=== PATIENT | female | born 1985 | race Caucasian/White ===

== ENCOUNTER 2018-11-23 17:29 | Emergency (ER) | payer OTHER ==
[2018-11-23 18:16] LABS: #Eosinphils 0.1 thou/uL (0.0-0.7); #Monocytes 0.5 thou/uL (0.11-0.59); #Neutrophils 4.7 thou/uL (1.40-6.50); %Basophils 0.4 % (0.0-1.0); %Eosinophils 0.7 % (0.0-10.0); %Lymphocytes 27.3 % (21.0-51.0); %Monocytes 6.4 % (0.0-10.0); %Neutrophils 65.2 % (42.0-75.0); Hemoglobin 14.5 g/dL (12.0-16.0); Mean Corpuscular HGB CONC 33.6 g/dL (32.0-36.0); Mean Corpuscular Hemoglobin 31.5 pg (27.0-31.0); Mean Corpuscular Volume 93.7 fL (78.0-98.0); Mean Platelet Volume 7.6 fL (7.4-10.4); Platelet Count 308 thou/uL (130-400); Red Blood Cell (RBC) Count 4.61 mill/uL (4.20-5.40); White Blood Cell (WBC) Count 7.2 thou/uL (4.8-10.8)
[2018-11-23 18:38] LABS: ALT (SGPT) 19 U/L (8-55); AST (SGOT) 19 U/L (5-34); Albumin 4.2 g/dL (3.5-5.0); Alkaline Phosphatase 49 U/L (40-150); Anion Gap 11 mmol/L (10-20); BUN (Urea Nitrogen) 8 mg/dL (7.0-18.7); Bilirubin, Total 0.5 mg/dL (0.2-1.2); Calc. Creatinine Clearance 0 mL/min (70-130); Calcium 9.4 mg/dL (7.8-10.44); Carbon Dioxide 25 mmol/L (22-29); Chloride 107 mmol/L (98-107); Estimated GFR-MDRD 87; Globulin 2.9 g/dL (2.4-3.5); Glucose 79 mg/dL (70-105); Potassium 3.7 mmol/L (3.5-5.1); Protein, Total 7.1 g/dL (6.0-8.3); Sodium 139 mmol/L (136-145)
[2018-11-23] MEDS ORDERED: Pantoprazole 40 MG VIAL ONE (18:44)
[2018-11-23 19:02] LABS: PTT 28.6 SEC (22.9-36.1); Prothrombin Time 13.6 SEC (12.0-14.7)
[2018-11-23 19:07] LABS: BHCG - Serum Negative (NEGATIVE); Pregs Control Background? CLEAR/WHITE (CLR/WHITE); Pregs Control Bar Appear? YES (CONTROL BAR)
[2018-11-23] MEDS ORDERED: Ondansetron PF 4 MG/2 ML Vial ONE (19:19)
--- NOTE | 2018-11-23 19:20 | RAD ---
XR Chest Pa Lat STANDARD History: Nausea and vomiting Comparison: None. Findings: Lungs are clear. No pneumothorax or effusion. Cardiac silhouette and mediastinal contours a re within normal limits. Impression: No acute intrathoracic abnormality.
== END 2018-11-23 20:00 | disposition home or self-care (01) ==
LOC: ERS 17:29
DX: K22.6 Gastro-esophageal laceration-hemorrhage syndrome (principal); J45.909 Unspecified asthma, uncomplicated; F41.9 Anxiety disorder, unspecified; F32.9 Major depressive disorder, single episode, unspecified; F17.210 Nicotine dependence, cigarettes, uncomplicated
CPT/HCPCS: 36415; 71046; 80053; 82274; 84703; 85025; 85610; 85730; 96374; 96375; C9113; J2405

== ENCOUNTER 2022-05-17 03:35 | Emergency (ER) | payer OTHER, SELFPAY | END 2022-05-17 04:23 | LOC: ERS 03:35 | DX: S02.2XXA Fracture of nasal bones, initial encounter for closed fracture (principal); F17.210 Nicotine dependence, cigarettes, uncomplicated; V49.9XXA Car occupant (driver) (passenger) injured in unspecified traffic accident, initial encounter | CPT/HCPCS: 71045 ==